=== PATIENT | female | born 1995 | race African-American/Black ===

== ENCOUNTER 2019-03-23 23:35 | Emergency (ER) | payer OTHER | END 2019-03-24 01:47 | disposition home or self-care (01) | LOC: JER 03-24 01:47 | DX: S61.511A Laceration without foreign body of right wrist, initial encounter (principal); W25.XXXA Contact with sharp glass, initial encounter; Y93.89 Activity, other specified; Y92.89 Other specified places as the place of occurrence of the external cause; Y99.8 Other external cause status ==

== ENCOUNTER 2020-11-07 00:09 | Emergency (ER) | payer OTHER ==
[2020-11-07 01:09] VITALS: TEMP 99; BMI 24.7
[2020-11-07] MEDS ORDERED: METOCLOPRAMIDE HCL INJECTION 10 MG/2 ML VIAL IVPB ONE (01:44)
[2020-11-07] MEDS ORDERED: SODIUM CHLORIDE 1,000 ML IV STA (01:44)
[2020-11-07] MEDS ORDERED: ACETAMINOPHEN 1000 MG/100 ML VIAL (NON FORMULARY) IVPB ONE (01:44)
[2020-11-07] MEDS ORDERED: METOCLOPRAMIDE HCL INJECTION 10 MG/2 ML VIAL ONE (01:55)
[2020-11-07] MEDS ORDERED: ACETAMINOPHEN INJECTION 100 ML IVPB ONE (01:55)
[2020-11-07 04:03] VITALS: BP 127/83; PULSE 78
== END 2020-11-07 04:04 | disposition home or self-care (01) ==
LOC: JER 00:09
PROC: 3E0333Z Introduction of Anti-inflammatory into Peripheral Vein, Percutaneous Approach (ICD-10-PCS; principal; 2020-11-07)
PROC: 3E033GC Introduction of Other Therapeutic Substance into Peripheral Vein, Percutaneous Approach (ICD-10-PCS; 2020-11-07)
PROC: 3E033GC Introduction of Other Therapeutic Substance into Peripheral Vein, Percutaneous Approach (ICD-10-PCS; 2020-11-07)
PROC: 3E0337Z Introduction of Electrolytic and Water Balance Substance into Peripheral Vein, Percutaneous Approach (ICD-10-PCS; 2020-11-07)
DX: R51.9 Headache, unspecified (principal)
CPT/HCPCS: 70450-TC; 84703; 99284-25; J0131

== ENCOUNTER 2021-07-24 22:55 | Emergency (ER) | payer OTHER ==
[2021-07-24 23:00] VITALS: BP 127/75; PULSE 95; TEMP 98.2; BMI 30.4
[2021-07-24] MEDS ORDERED: diphenhydrAMINE HCL 50 MG CAPSULE PO ONE (23:41)
[2021-07-24] MEDS ORDERED: DEXAMETHASONE SOD PHOSPHATE 10 MG/1 ML VIAL IM ONE (23:42)
== END 2021-07-25 00:07 | disposition home or self-care (01) ==
LOC: JERFT 22:55 → JER 22:55 → JERFT 07-25 00:07
PROC: 3E023GC Introduction of Other Therapeutic Substance into Muscle, Percutaneous Approach (ICD-10-PCS; principal; 2021-07-24)
DX: T78.40XA Allergy, unspecified, initial encounter (principal)
CPT/HCPCS: 96372; 99284-25; J1100